=== PATIENT | male | born 1990 | race Caucasian/White ===

== ENCOUNTER 2021-10-03 03:01 | Emergency (ER) | payer BC ==
[~2021-10-03] VITALS: Ht 182.9 cm; Wt 63.5 kg
--- NOTE | ~2021-10-03 | EMS ---
[facility] [address] [place] [address] EMS Patient Care Report Name: EDUIN RIOS Room #: REG MITALI Weber#: [id number] Admission: 10/03/21 Attend Phys: Discharge: Date of : 88 Report #: [id number] THIS REPORT FOR: //name// Report Transmitted: 10/03/2021 02:43 EMS Care Summary [place], [place]/[facility] Incident [phone] @ 10/03/2021 02:17 Incident Location [address] [place] [address] Patient EDUIN RIOS Male, 31 Years 1990 Patient Address [address] [place] [address] Patient History None Reported, Patient Allergies No known allergies, Patient Medications None Reported, Chief Complaint SUICIDAL IDEATIONS Disposition Transported No Lights/[place] Dispatch Reason Psychiatric Problem/Abnormal Behavior/Suicide Attempt Transported To [facility] Narrative DISPATCHED EMERGENCY ON A PSYCHIATRIC. POLICE ON SCENE UPON ARRIVAL. 31 Y/O MALE SITTING ON COUCH IN LIVING ROOM APPEARING IN NO IMMEDIATE DISTRESS. HANDCUFFS ARE IN PLACE TO BILATERAL WRISTS. POLICE STATE THAT THEY ARE HAVING PT TRANSPORTED TO THE HOSPITAL FOR SUICIDAL STATEMENTS AND MESSAGES HE MADE. PT [facility] [address] [place] [address] EMS Patient Care Report Name: EDUIN RIOS Room #: REG Gus#: [id number] Admission: 10/03/21 Attend Phys: Discharge: Date of : 88 Report #: [id number] DENIES WANTING TO HARM ANYONE ELSE. PT STATES MULTIPLE TIMES THAT HE DOES NOT WANT TO GO TO THE HOSPITAL BECAUSE HE DOESN'T WANT TO PAY THE AMBULANCE BILL. POLICE ADVISE HIM THAT HE WILL BE GOING TO THE HOSPITAL BECAUSE OF THE SUICIDAL STATEMENTS MADE. POLICE STATE THAT THEY ARE DOING AN AFFIDAVIT ON PT. ASSISTED WITHOUT INCIDENT TO STRETCHER IN AMBULANCE. V/S'S OBTAINED. TRANSPORTED TO [facility]. REASSESSED ENROUTE. REMAINS GCS 15 AND ALERT. V/S'S OBTAINED. REPORT CALLED TO HOSPITAL. MOVED WITHOUT INCIDENT TO ER HOSPITAL BED 5. PT CARE TRANSFERRED TO ED RN. Initial Vitals @02:42P: 110,R: 20,BP: 166/88,Pain: 0/10,GCS: 15,SpO2: 97,Revised Trauma: 12, @02:49P: 100,R: 18,BP: 160/110,Pain: 0/10,GCS: 15,Revised Trauma: 12, Assessments @02:32MENTAL:Person Oriented,Event Oriented,Time Oriented,Place Oriented,SKIN:HEENT:Eyes: Left Pupil: 4-mm,Eyes: Right Pupil: 4-mm,Head/Face: No Abnormalities,Neck/Airway: No Abnormalities,LUNG SOUNDS:General: No Abnormalities,ABDOMEN:General: No Abnormalities,PELVIS//GI:EXTREMITIES:Capillary Refill: Right Upper: < 2 Sec,Capillary Refill: Left Upper: < 2 Sec,Left Arm: No Abnormalities,Right Arm: No Abnormalities,Left Leg: No Abnormalities,Right Leg: No Abnormalities,PULSE:Radial: 2+ Normal,NEURO:No Abnormalities, Impression Behavioral/psychiatric episode Procedures @02:32 ALS Assessment Response: UnchangedSucceeded @02:35 Stretcher Response: Unchanged @PTAPatient Restraint Response: Unchanged Timeline STUDENT SUCCESS ADVISOR,Patient Restraint,Response: Unchanged 02:16,Call Received 02:16,Dispatch Notified 02:17,Dispatched 02:17,En Route 02:29,On Scene 02:31,At Patient 02:32,ALS Assessment,Response: UnchangedSucceeded, 02:35,Stretcher,Response: Unchanged 02:42,BP: 166/88 M,PULSE: 110,RR: 20 R,SPO2: 97 Ox,ETCO2: ,BG: ,PAIN: 0,GCS: 15, 02:44,Depart Scene 02:49,BP: 160/110 M,PULSE: 100,RR: 18 R,SPO2: Ox,ETCO2: ,BG: ,PAIN: 0,GCS: 15, [facility] [address] [place] [address] EMS Patient Care Report Name: EDUIN RIOS Room #: REG [facility].#: [id number] Admission: 10/03/21 Attend Phys: Discharge: Date of : 88 Report #: [id number] 02:57,At Destination 03:13,Call Closed Disclaimer [email or web address] Copyright 2021 [employer] This EMS Care Summary contains data elements from the applicable legal record (which may be displayed differently). It is designed to provide pertinent information for the following purposes: continuity of care, clinical quality, and state data reporting. The complete legal record is available to ED staff and administrators of the receiving hospital in ES's Patient Tracker. All data is provided "as is."
[2021-10-03 03:34] LABS: AMP/METHAMP Negative (Negative); BARBITURATES Negative (Negative); BENZODIAZEPINES Negative (Negative); COCAINE Negative (Negative); METHADONE Negative (Negative); OPIATES Negative (Negative); PCP Negative (Negative)
[2021-10-03 03:52] LABS: HEMATOCRIT 42.5 % (42.0-52.0); HEMOGLOBIN 14.9 gm/dL (14.0-18.0); MCH 30.1 pg (26.0-34.0); MCV 85.9 fL (80.0-100.0); RBC 4.95 mil/uL (4.50-6.00); RDW 13.2 % (10.5-14.5); WBC 5.4 thou/uL (4.0-11.0)
[2021-10-03 04:01] LABS: ANION GAP 13 mmol/L (7-16); BUN 7 mg/dL (7-18); CALCIUM 8.7 mg/dL (8.5-10.1); CHLORIDE 106 mmol/L (98-107); CO2 25 mmol/L (21-32); CREATININE 0.7 mg/dL (0.7-1.3); GLUCOSE 107 mg/dL (74-106); POTASSIUM 3.7 mmol/L (3.5-5.1); SODIUM 144 mmol/L (136-145)
[2021-10-03 04:09] LABS: ALBUMIN 4.4 g/dL (3.4-5.0); SALICYLATE < 2.8 mg/dL (2.8-20.0); SGOT 21 U/L (15-37); SGPT 28 U/L (16-63); TOTAL BILIRUBIN 0.7 mg/dL (0.2-1.0); TOTAL PROTEIN 7.4 g/dL (6.4-8.2)
[2021-10-03 05:25] VITALS: BP 115/70
== END 2021-10-03 05:27 | disposition home or self-care (01) ==
LOC: ER 03:01
PROVIDERS: Emergency Medicine
DX: F10.129 Alcohol abuse with intoxication, unspecified (principal); R45.851 Suicidal ideations; Y90.0 Blood alcohol level of less than 20 mg/100 ml